=== PATIENT | female | born 1960 | race Caucasian/White ===

== ENCOUNTER → 2023-07-29 11:54 | Outpatient (REF) | payer BC, SELFPAY | LOC: RAD 11:54 | PROVIDERS: ATTENDING PHYSICIAN Physician Assistant | DX: K59.09 Other constipation (principal); R10.30 Lower abdominal pain, unspecified; M54.50 Low back pain, unspecified | CPT/HCPCS: 72110; 74019 ==

== ENCOUNTER 2023-08-08 06:14 | Outpatient (RCR) | payer BC, SELFPAY | END 2023-08-08 23:59 | disposition home or self-care (01) | LOC: RPT 06:14 | PROVIDERS: ATTENDING PHYSICIAN Family Medicine | DX: S39.012D Strain of muscle, fascia and tendon of lower back, subsequent encounter (principal); Z73.6 Limitation of activities due to disability | CPT/HCPCS: 97110; 97161 ==

== ENCOUNTER 2023-09-28 07:18 | Emergency (ER) | payer BC, SELFPAY ==
[2023-09-28 07:23] VITALS: BP 181/113
[2023-09-28 09:21] VITALS: BP 187/90
--- NOTE | 2023-09-28 09:41 | ED.GENMED ---
History of Present Illness
General
Chief Complaint: Back Pain
Source: patient
Exam Limitations: none
Time Seen by Provider: 09/28/23 08:50
Nursing documentation reviewed up to this point in time: agreed with
History of Present Illness
History of Present Illness:
Patient is a 63-year-old female with a history of obesity but status post 80 pound weight loss on Mounjaro, wvl-[id number]-mjtfupanm diabetes, hyperlipidemia, former hypertension off her blood pressure medications but with a history of whitecoat
syndrome who presents with lower back pain which seems to radiate into bilateral inguinal regions and thighs when she changes positions. Patient specifically feels the pain into her thighs when she bends over. Sometimes is also when she stands
back up after bending over. She is having trouble sleeping at times because she cannot get comfortable. She saw her doctor about 2 months ago who ordered x-rays which she had of her lumbar spine and abdomen. Patient was also having some
constipation issues. The x-rays of her lumbar spine with minimal changes in her L4 and L5, multilevel advanced changes of facet joints and mild spondylolisthesis of L3-L4 and L2-L3
Patient got a referral for PT but then because of her work schedule only had the initial consultation and never did any other treatments. She is on meloxicam once a day and she seems to be having pain it is not controlled. She was not aware she
could take Tylenol additionally. Patient has continued to have the pain radiate into her thighs. She has no numbness or weakness or incontinence or fever. She has no IV drug abuse history. She has not had any urinary discomfort but she is
urinating more frequently because she is drinking more water. Patient formally was on blood pressure medications but came off of home after she lost all this weight but she does have periods of time where her blood pressure is elevated and is
usually related to being anxious in the office or hospital setting.
She is not having any chest pain or shortness of breath or headache or blurred vision
Past History
Past History
ED Past Medical History: HTN, Hypercholesterolemia, NIDDM and Other (Obesity, facet joint arthropathy in her lumbar spine)
Social History
Tobacco: Non-smoker
Alcohol: None
Drug: None
Personal: Single
Review of Systems
Review of Systems
Allergies reviewed?: Yes
All Other Systems: Not applicable
Phy Exam
Physical Exam
Physical Exam:
GENERAL: Alert , in no apparent distress, comfortable at rest
HEAD: NCAT
NECK: no midline tenderness, active ROM intact, no paraspinal muscle tenderness;
CARDIAC: Regular rate and rhythm, no edema
LUNGS: Clear breath sounds bilaterally, no acute respiratory distress, no wheezes/rales/rhonchi
ABDOMEN: Soft, without focal tenderness, no r/g, no cvat, normal bowel sounds, nondistended
NEUROLOGICAL: Alert and oriented, no focal neuro deficits, CN intact, 5/5 strength, sensation intact, ambulation slight limp left leg
SKIN: Warm and dry, no rashes or bruising
MUSCULOSKELETAL: No edema, well perfused. Normal inspection of the bilateral hips and legs
Patient has no tenderness to palpation of the hips bilaterally no tenderness to the SI joints
Patient has some discomfort with left sided hip flexion but it is minimal
Back: No midline tenderness, no swelling
Positive straight leg on the left with 30 degrees flexion causing some pain into the anterior left thigh, sensation and strength are completely intact, flexion is intact
PSYCH: Normal and appropriate interaction.
Course
Orders/Labs/Results
Orders:
Orders
09/28/23 09:20
Urinalysis Reflex To Culture Urgent
Date Specimen was Collected: 09/28/23
Time Specimen was Collected: 09:18
Vital Signs
Initial and Last Documented VS:
Initial Vital Signs
Temp Pulse Resp BP Pulse Ox
98.4 F 82 18 181/113 99
09/28/23 07:23 09/28/23 07:23 09/28/23 07:23 09/28/23 07:23 09/28/23 07:23
Last Documented Vital Signs
Temp Pulse Resp BP Pulse Ox
98.4 F 66 16 187/90 100
09/28/23 07:23 09/28/23 09:21 09/28/23 10:04 09/28/23 09:21 09/28/23 09:21
MDM/Problems Addressed
Differential Diagnosis Includes:
Spinal stenosis, disc herniation,/lumbar radiculopathy, sciatica, arthritis, less likely dissection
MDM/Problems Addressed:
63-year-old female with ongoing chronic lower back discomfort which seems to radiate around both sides into her groin and and into the proximal thigh on both sides. She is not having any numbness tingling or weakness. No incontinence or urinary
retention. Patient has been seen by her family doctor and had x-rays showing facet joint arthropathy and some mild DJD changes throughout her lumbar spine. She had a referral to PT and had her initial consultation but because of work problems with
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 Patient has been taking meloxicam with some relief but feels like the symptoms are not controlled. She is here for second opinion. She has not having any
worsening of symptoms today but decided to come get checked out to see if she can get diagnosis. She is hypertensive on arrival which did improve slightly but the patient has a history of whitecoat syndrome and this is oftentimes the case for her.
She will repeat her blood pressure at home and is having no symptoms. She is very comfortable on exam, able to walk, able to fully flex but she does have a little bit of discomfort and straight leg raise on the left with pain into her thigh. She
is neurologically intact and has no red flag symptoms or signs for cauda equina. She does not meet any kind of criteria for urgent MRI but I do recommend that she add Tylenol to her regimen and follow-up with PT. She may require an outpatient MRI.
In the meantime I also did offer her a round of steroids which she does want to avoid because of her history of diabetes and she did have a lot of weight loss on Mounjaro and is doing quite well with that. She will take a prescription for muscle
relaxer for nighttime because she is having trouble sleeping. Return precautions given
ua neg.
Chronic conditions affecting care:
htn uncontrolled, likely white coat syndrome; minesh recheck; also could be related to pain
*Critical Care Note
Total Time (30-74mins, 75-104mins- exclusive of procedures): Not Applicable
ED Attending Note
-
Portions of this chart may have been created with voice recognition software.� Occasional wrong word or��sound alike� substitutions may have occurred due to the inherent limitations of voice recognition software.
Discharge Plan
Departure
Patient Disposition: Home (Routine Discharge)
Date of Disposition: 09/28/23
Time of Disposition: 10:13
Patient with high blood pressure during this ER visit?: Yes
Condition: Fair
Covid-19: Not Applicable
Discharge Problem:
Blood pressure alteration, Low back pain, Chronic lumbar radiculopathy
Instructions: Radiculopathy (DC), BLOOD PRESSURE
Prescriptions:
New
cyclobenzaprine 10 mg tablet
10 mg PO HS PRN (Reason: muscle spasm) Qty: 10 0RF
Referrals:
Eduardo Wilder MD [Family Provider] - Follow up in 5-7 days
Activity Restrictions/Additional Instructions:
You should call your doctor to see if he can arrange for an MRI. He may need physical therapy first before they will preauthorize 1. In the meantime continue meloxicam as directed. You can add Tylenol 3 times a day as needed for pain as well.
You can take a muscle relaxer. You may cut the pill in half if the 10 mg is too much and makes you feel drowsy the next day.
Return for severe worsening of symptoms like inability to walk, fever, weakness in the legs, severe numbness in the legs, urinary incontinence or inability to urinate, fever or any concerns. Make sure to repeat your blood pressure at home to be
sure this improves.
Interventions
Interventions:
*Risk Screen - Suicide Last Done: 09/28/23 07:23
*General Assessment Last Done: 09/28/23 07:23
*Neglect/Abuse Screening Last Done: 09/28/23 07:23
ED- Fall Risk Assessment Last Done: 09/28/23 09:22
*ED COVID-19 Vaccine History Last Done: 09/28/23 08:47
ED-Musculoskeletal Assessment Last Done: 09/28/23 08:47
Discharge Date and Time
Print Language: BULGARIAN
[2023-09-28 09:42] LABS: Urine Albumin Negative (Neg - Trace); Urine Bilirubin Negative (Negative); Urine Character Clear (Clear); Urine Color Yellow; Urine Glucose Negative (Negative); Urine Ketone Negative (Negative); Urine Leukocyte Negative (Negative); Urine Nitrite Negative (Negative); Urine Occult Blood Negative (Negative); Urine Specific Gravity 1.015 (<1.030); Urine Urobilinogen Negative (Neg - 1+)
[2023-09-28 10:28] VITALS: BP 174/89
== END 2023-09-28 10:29 | disposition home or self-care (01) ==
LOC: EMR 07:18
PROVIDERS: Physician Assistant; EMERGENCY PHYSICIAN Student in an Organized Health Care Education/Training Program; FAMILY PHYSICIAN Family Medicine
DX: M54.50 Low back pain, unspecified (principal); M79.652 Pain in left thigh; M79.651 Pain in right thigh; K59.00 Constipation, unspecified; M54.16 Radiculopathy, lumbar region; G89.29 Other chronic pain; E66.9 Obesity, unspecified; E11.9 Type 2 diabetes mellitus without complications; M43.16 Spondylolisthesis, lumbar region; E78.00 Pure hypercholesterolemia, unspecified; I10 Essential (primary) hypertension; Z91.018 Allergy to other foods
CPT/HCPCS: 99283; 81003

== ENCOUNTER 2023-10-20 09:44 | Outpatient (RCR) | payer BC, SELFPAY | END 2023-10-20 23:59 | disposition home or self-care (01) | LOC: RPT 09:44 | PROVIDERS: ATTENDING PHYSICIAN Family Medicine | DX: S39.012D Strain of muscle, fascia and tendon of lower back, subsequent encounter (principal); Z73.6 Limitation of activities due to disability | CPT/HCPCS: 97110; 97112; 97530 ==

== ENCOUNTER → 2023-11-08 08:17 | Outpatient (REF) | payer BC, SELFPAY | LOC: MRI 08:17 | PROVIDERS: ATTENDING PHYSICIAN Physician Assistant; FAMILY PHYSICIAN Family Medicine | DX: M51.36 Other intervertebral disc degeneration, lumbar region (principal); R20.2 Paresthesia of skin; M54.16 Radiculopathy, lumbar region | CPT/HCPCS: 72148 ==

== ENCOUNTER 2023-11-10 12:48 | Outpatient (RCR) | payer BC, SELFPAY | END 2023-11-10 23:59 | disposition home or self-care (01) | LOC: RPT 12:48 | PROVIDERS: ATTENDING PHYSICIAN Family Medicine | DX: S39.012D Strain of muscle, fascia and tendon of lower back, subsequent encounter (principal); Z73.6 Limitation of activities due to disability; M62.81 Muscle weakness (generalized); R26.2 Difficulty in walking, not elsewhere classified; M79.605 Pain in left leg; M79.604 Pain in right leg | CPT/HCPCS: 97110; 97112; 97140 ==

== ENCOUNTER → 2023-11-22 10:06 | Outpatient (REF) | payer BC, SELFPAY | LOC: RAD 10:06 | PROVIDERS: ATTENDING PHYSICIAN Family Medicine | DX: K56.41 Fecal impaction (principal) | CPT/HCPCS: 74019 ==

== ENCOUNTER 2024-06-13 07:22 | Outpatient (RCR) | payer BC, SELFPAY | END 2024-06-13 23:59 | disposition home or self-care (01) | LOC: RPT 07:22 | PROVIDERS: ATTENDING PHYSICIAN Family Medicine | DX: G51.0 Bell's palsy (principal); Z73.6 Limitation of activities due to disability | CPT/HCPCS: 97110; 97161 ==

== ENCOUNTER → 2024-08-14 08:32 | Outpatient (REF) | payer BC, SELFPAY | LOC: HWWDC 08:32 | PROVIDERS: ATTENDING PHYSICIAN Family Medicine | DX: Z12.31 Encounter for screening mammogram for malignant neoplasm of breast (principal) | CPT/HCPCS: 77063; 77067 ==

== ENCOUNTER 2024-08-27 06:23 | Day surgery (SDC) | payer BC, SELFPAY ==
[2024-08-27 08:40] LABS: Glucose - Point of Care 81 mg/dl (70-99)
== END 2024-08-27 10:56 | disposition home or self-care (01) ==
LOC: GI 06:23
PROVIDERS: ATTENDING PHYSICIAN Internal Medicine Gastroenterology; FAMILY PHYSICIAN Family Medicine
DX: Z12.11 Encounter for screening for malignant neoplasm of colon (principal); R19.5 Other fecal abnormalities; K57.30 Diverticulosis of large intestine without perforation or abscess without bleeding; K64.8 Other hemorrhoids; D12.8 Benign neoplasm of rectum
CPT/HCPCS: 45385; 82962; 88305